=== PATIENT | female | born 1995 | race Caucasian/White ===

== ENCOUNTER 2018-07-11 18:47 | Emergency (ER) | payer BC ==
[2018-07-11 19:00] VITALS: BP 125/70
--- NOTE | 2018-07-11 19:01 | ER Report ---
History and Physical Time Seen By MD: 18:57 Hx. of Stated Complaint: PATIENT REPORTS LOWER ABDOMINAL PAIN FOR 1 WEEK. SHE WAS SENT BY URGENT CARE HPI/ROS CHIEF COMPLAINT: Abdominal pain HISTORY OF PRESENT ILLNESS: This is a 23-year-old female presents to the emergency department for abdominal pain. Patient states that over the last 5-7 days he's had right sided abdominal pain, she did have a urinary tract infection couple weeks ago was treated with Bactrim, the UTI symptoms did seem to resolve however she still has this lingering right lower quadrant pain. Patient was briefly evaluated at urgent care since going sent to the ER for further evaluation. Patient arrives alert and oriented acting appropriate. Negative hCG and negative UA at urgent care. No fevers or chills. No nausea or vomiting. No dysuria. No constipation or loose stools. REVIEW OF SYSTEMS: Constitutional: No fever, no chills. Eyes: No discharge. ENT: No sore throat. Cardiovascular: No chest pain, no palpitations. Respiratory: No cough, no shortness of breath. Gastrointestinal: As above. Genitourinary: No hematuria. Musculoskeletal: No back pain. Skin: No rashes. Neurological: No headache. Allergies: Coded Allergies: fentanyl (Verified Allergy, Intermediate, 07/11/18) Home Meds No Active Prescriptions or Reported Meds Past Medical/Surgical History The patient has a past medical and surgical history of urinary tract infections. Reviewed Nurses Notes: Yes Hx Substance Use Disorder: No Constitutional Vital Sign - Last 24 Hours 07/11/18 07/11/18 07/11/18 18:52 19:00 19:30 Temp 98.9 Pulse 76 74 75 Resp 20 B/P (MAP) 125/72 125/70 (88) Pulse Ox 96 97 96 O2 Delivery Room Air Physical Exam General Appearance: The patient is alert, has no immediate need for airway protection and no signs of toxicity. Eyes: Pupils equal and round no pallor or injection. ENT, Mouth: Mucous membranes are moist. Respiratory: There are no retractions, lungs are clear to auscultation. Cardiovascular: Regular rate and rhythm. Gastrointestinal: Abdomen is soft and mild tenderness to the right lower quadrant and the right upper quadrant, normoactive bowel sounds, no masses, no abdominal bruits. No rebound tenderness. Neurological: Alert and oriented 4. Moving all extremities. Following all commands. No focal neuro deficits. Skin: Warm and dry, no rashes. Musculoskeletal: Neck is supple non tender. Extremities are nontender, nonswollen and have full range of motion. DIFFERENTIAL DIAGNOSIS: After history and physical exam differential diagnosis was considered for abdominal pain in a female including but not limited to ovar lino cyst, pelvic inflammatory disease, ovarian torsion, urinary tract infection, and appendicitis. Medical Decision Making Data Points Result Diagram: 07/11/18190507/11/181905 Laboratory Hematology Test 07/11/18 19:06 Red Blood Count 4.99 M/uL (4.17-5.56) Mean Corpuscular Volume 91.3 fL (80.0-96.0) Mean Corpuscular Hemoglobin 30.9 pg (26.0-33.0) Mean Corpuscular Hemoglobin Concent 33.9 g/dL (32.0-36.0) Red Cell Distribution Width 12.5 % (11.5-14.5) Mean Platelet Volume 8.9 fL (7.2-11.1) Neutrophils (%) (Auto) 62.3 % (39.4-72.5) Lymphocytes (%) (Auto) 24.8 % (17.6-49.6) Monocytes (%) (Auto) 7.0 % (4.1-12.4) Eosinophils (%) (Auto) 5.1 % (0.4-6.7) Basophils (%) (Auto) 0.8 % (0.3-1.4) Nucleated RBC Relative Count (auto) 0.1 /100WBC Neutrophils # (Auto) 4.8 K/uL (2.0-7.4) Lymphocytes # (Auto) 1.9 K/uL (1.3-3.6) Monocytes # (Auto) 0.5 K/uL (0.3-1.0) Eosinophils # (Auto) 0.4 K/uL (0.0-0.5) Basophils # (Auto) 0.1 K/uL (0.0-0.1) Nucleated RBC Absolute Count (auto) 0.00 K/uL Sodium Level 140 mmol/L (137-145) Potassium Level 3.7 mmol/L (3.5-5.0) Chloride Level 102 mmol/L (98-107) Carbon Dioxide Level 27 mmol/L (22-31) Blood Urea Nitrogen 14 mg/dl (7-18) Creatinine 0.80 mg/dl (0.52-1.04) Glomerular Filtration Rate Calc > 60.0 Random Glucose 95 mg/dl (75-110) Calcium Level 9.6 mg/dl (8.4-10.2) Total Bilirubin 0.6 mg/dl (0.2-1.3) Aspartate Amino Transf (AST/SGOT) 36 U/L (0-35) Alanine Aminotransferase (ALT/SGPT) 36 U/L (0-56) Alkaline Phosphatase 73 U/L (0-126) Total Protein 7.7 g/dl (6.3-8.2) Albumin 4.3 g/dl (3.5-5.0) Lipase 95 U/L (23-300) Chemistry Test 07/11/18 19:06 White Blood Count 7.6 k/uL (4.5-11.0) Red Blood Count 4.99 M/uL (4.17-5.56) Hemoglobin 15.4 g/dL (12.0-16.0) Hematocrit 45.6 % (34.0-47.0) Mean Corpuscular Volume 91.3 fL (80.0-96.0) Mean Corpuscular Hemoglobin 30.9 pg (26.0-33.0) Mean Corpuscular Hemoglobin Concent 33.9 g/dL (32.0-36.0) Red Cell Distribution Width 12.5 % (11.5-14.5) Platelet Count 281 K/uL (150-450) Mean Platelet Volume 8.9 fL (7.2-11.1) Neutrophils (%) (Auto) 62.3 % (39.4-72.5) Lymphocytes (%) (Auto) 24.8 % (17.6-49.6) Monocytes (%) (Auto) 7.0 % (4.1-12.4) Eosinophils (%) (Auto) 5.1 % (0.4-6.7) Basophils (%) (Auto) 0.8 % (0.3-1.4) Nucleated RBC Relative Count (auto) 0.1 /100WBC Neutrophils # (Auto) 4.8 K/uL (2.0-7.4) Lymphocytes # (Auto) 1.9 K/uL (1.3-3.6) Monocytes # (Auto) 0.5 K/uL (0.3-1.0) Eosinophils # (Auto) 0.4 K/uL (0.0-0.5) Basophils # (Auto) 0.1 K/uL (0.0-0.1) Nucleated RBC Absolute Count (auto) 0.00 K/uL Glomerular Filtration Rate Calc > 60.0 Calcium Level 9.6 mg/dl (8.4-10.2) Total Bilirubin 0.6 mg/dl (0.2-1.3) Aspartate Amino Transf (AST/SGOT) 36 U/L (0-35) Alanine Aminotransferase (ALT/SGPT) 36 U/L (0-56) Alkaline Phosphatase 73 U/L (0-126) Total Protein 7.7 g/dl (6.3-8.2) Albumin 4.3 g/dl (3.5-5.0) Lipase 95 U/L (23-300) EKG/Imaging Imaging Location: [facility] Patient: Zully Blair : 1995 Visit/Account:[id number] Date of Sevice: 07/11/2018 COMPUTED TOMOGRAPHY OF THE Abdomen and Pelvis with CONTRAST INDICATION: Abdominal pain. Evaluate for appendicitis. TECHNIQUE: Contiguous axial 3.[address] images were obtained through the abdomen and pelvis after 75 mL Isovue-370. Coronal and sagittal reformatted images were submitted. COMPARISON: None. FINDINGS: Lung bases: Clear Liver and hepatic vasculature: No focal liver lesion. Gallbladder and bile ducts: Normal Spleen: Normal Pancreas: Normal Adrenals: Normal Kidneys, ureters and bladder: Normal Retroperitoneum and aorta: Normal GI tract, mesentery and peritoneum: Normal appendix. No bowel obstruction. No free fluid or free air. No findings of diverticulitis. Uterus and adnexa: The ovaries are mildly prominent. No abnormal pelvic fluid. 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 Bones and soft tissues: No acute osseous abnormality. IMPRESSION: 1. Normal appendix. 2. Mildly prominent ovaries but no abnormal fluid collection or mass. One of the following dose optimization techniques was utilized in the performance of this exam: Automated exposure control; adjustment of the mA and/or kV according to the patient's size; or use of an iterative reconstruction technique. Specific details can be referenced in the facility's radiology CT exam operational policy. Report Dictated By: Rachel Irvin MD at 07/11/2018 8:27 PM Report E-Signed By: Rachel Irvin MD at 07/11/2018 8:52 PM WSN:[facility] ED Course/Re-evaluation Clinical Indication for ER IV: IV Access ED Course The patient was admitted to room. History is obtained. Differential diagnoses were considered. IV was started. CBC, CMP were obtained. Lab studies unremarkable. Patient had a UA and hCG at urgent care both of which were negative. Patient had a CT of the abdomen and pelvis here, no appendicitis noted, no other intra-abdominal abnormalities. I did review the results with the patient and her mother, patient is relieved that there is no appendicitis. She is also given 1000 mg IV Tylenol. I did recommend the patient follows up with [facility] within the next couple days for reevaluation. I also recommended taking ibuprofen or Tylenol as needed for pain. Return to your for any concerns or worsening symptoms. The patient had not aggressions or concerns at this time and was discharged home. I did tell her that this could be muscular in nature she was lifting weights could be a muscular strain. Decision to Disposition Date: Jul 11, 2018 Decision to Disposition Time: 21:08 Depart Departure Latest Vital Signs Vital Signs Date Time Temp Pulse Resp B/P (MAP) Pulse Ox O2 Delivery O2 Flow Rate FiO2 07/11/18 19:30 75 96 07/11/18 19:00 125/70 (88) 07/11/18 18:52 98.9 20 Room Air Impression: Primary Impression: Abdominal pain of unknown etiology Condition: Improved Disposition: HOME OR SELF-CARE Referrals: [facility] New Scripts No Active Prescriptions or Reported Meds Patient Instructions: Abdominal Pain (ED), Acute Abdominal Pain (DC) Additional Instructions: Your blood work is normal today, no indication of infection. Your CT is negative for appendicitis, no other concerning pathology on CT. I would recommend taking 400-600mg of Ibuprofen every 6 hours as needed for pain. You can also take 500-1000mg Tylenol as needed for pain, alternate with Ibuprofen. I would recommend following up with [facility] or whomever you choose in the next 2 days for reevaluation. If you have any other concerns or worsening symptoms, return to the ED. Drink plenty of fluid. Get plenty of rest. CESILIA AHN DATA REVIEW SPECIALIST-BC Jul 11, 2018 19:01
[2018-07-11] MEDS ORDERED: IOPAMIDOL 76% 75 ML INFUS BTL 75 ML ONE (19:31)
[2018-07-11 19:38] LABS: PLATELET COUNT, AUTOMATED 281 K/uL (150-450)
[2018-07-11] MEDS ORDERED: ANAPHYLAXIS KIT 1 EA ONE (20:36)
[2018-07-11] MEDS ORDERED: ACETAMINOPHEN(*)1000 MG/100 ML 100 ML IVPB ONE (20:50)
--- NOTE | 2018-07-11 20:56 | RADIOLOGY IMAGING REPORT ---
FACILITY: [facility] PATIENT NAME: Zully Blair : 1995 MR: [id number] V: [id number] EXAM DATE: ORDERING PHYSICIAN: CESILIA AHN TECHNOLOGIST: [place] [facility] [place] Zully [place] : 1995 Visit/Account:[id number] Date of Sevice: 07/11/2018 COMPUTED TOMOGRAPHY OF THE Abdomen and Pelvis with CONTRAST INDICATION: Abdominal pain. Evaluate for appendicitis. TECHNIQUE: Contiguous axial 3.[address] images were obtained through the abdomen and pelvis after 75 m L Isovue-370. Coronal and sagittal reformatted images were submitted. COMPARISON: None. FINDINGS: Lung bases: Clear Liver and hepatic vasculature: No focal liver lesion. Gallbladder and bile ducts: Normal Spleen: Normal Pancreas: Normal Adrenals: Normal Kidneys, ureters and bladder: Normal Retroperitoneum and aorta: Normal GI tract, mesentery and peritoneum: Normal appendix. No bowel obstruction. No free fluid or free ai r. No findings of diverticulitis. Uterus and adnexa: The ovaries are mildly prominent. No abnormal pelvic fluid. The uterus appears t o be bicornuate. Bones and soft tissues: No acute osseous abnormality. IMPRESSION: 1. Normal appendix. 2. Mildly prominent ovaries but no abnormal fluid collection or mass. One of the following dose optimization techniques was utilized in the performance of this exam: Autom ated exposure control; adjustment of the mA and/or kV according to the patient's size; or use of an i terative reconstruction technique. Specific details can be referenced in the facility's radiology C T exam operational policy. Report Dictated By: Rachel Irvin MD at 07/11/2018 8:27 PM Report E-Signed By: Rachel Irvin MD at 07/11/2018 8:52 PM WSN:[id number]
== END 2018-07-11 21:25 | disposition home or self-care (01) ==
LOC: ER 19:25
DX: R10.31 Right lower quadrant pain (principal)
CPT/HCPCS: 83690; 85025; 96374; 99284; J0131; Q9967; 74177; 82040; 82247; 82310; 82374; 82435; 82565; 82947; 84075; 84132; 84155; 84295; 84450; 84460; 84520